=== PATIENT | male | born 1940 | race Caucasian/White ===

== ENCOUNTER 2025-04-05 01:48 | Inpatient (IN) | payer MEDICARE, BC ==
[~2025-04-05] VITALS: Ht 170.2 cm; Wt 49.0 kg
[2025-04-05] MEDS: IV NS 0.9% 500 ML BAG IV ONE ×2 (02:32→04:27)
[2025-04-05] MEDS ORDERED: PIPERACI/TAZO 3.375GM/D5W 50ML PB IV ONE (02:33)
[2025-04-05] MEDS ORDERED: ACETAMINOPHEN 325 MG/SUPP.RECT RC ONE (02:33)
[2025-04-05 02:34] LABS: ABG BASE EXCESS 0.3 mmol/L (-2.0-3.0); ABG OXYGEN SATURATION 96.3 % (94.0-98.0); ABG PCO2 29.9 mmHg (35.0-48.0); ABG PH 7.495 (7.350-7.450); ABG PO2 78.4 mmHg (83.0-108.0); COHb 0.3 % (0.5-1.5); MetHb 0.4 % (0.0-1.5); O2Hb 95.6 % (94.0-97.0); SITE, ABG LEFT RADIAL
[2025-04-05 02:42] LABS: APPEARANCE,URINE CLOUDY (CLEAR); BILIRUBIN,URINE NEGATIVE (NEGATIVE); BLOOD, URINE 3+ Ery/uL (NEGATIVE); COLOR,URINE YELLOW (YELLOW); KETONES,URINE NEGATIVE (NEGATIVE); LEUKOCYTE ESTERASE ,URINE 3+ (NEGATIVE); NITRITE, URINE NEGATIVE (NEGATIVE); PROTEIN,URINE 2+ mg/dl (NEGATIVE); UGLUCOSE NEGATIVE (NEGATIVE); UROBILINOGEN,URINE 0.2 EU/dL (0.2)
[2025-04-05] MEDS: PIPERACILLIN /TAZOBACTAM 3.375 G in IV D5W 50 ML IV ONE (02:42)
[2025-04-05] MEDS: ACETAMINOPHEN 650 MG/SUPP.RECT RC ONE (02:42)
[2025-04-05 02:43] LABS: BASOPHILS % (AUTO) 0.2 % (0.0-2.0); EOSINOPHILS % (AUTO) 0.1 % (0.0-6.0); HEMATOCRIT 42 % (39-51); HEMOGLOBIN 13.6 g/dL (13.5-17.5); LYMPHOCYTES # (AUTO) 4.7 K/uL (0.8-4.8); LYMPHOCYTES % (AUTO) 23.9 % (20.0-44.0); MEAN CORPUSCULAR HEMOGLOBIN 27 PG (26.0-33.0); MEAN CORPUSCULAR HGB CONC 32 g/dl (31.0-36.0); MEAN CORPUSCULAR VOLUME 83 fL (80-96); MONOCYTES # (AUTO) 1.3 K/uL (0.1-1.30); MONOCYTES % (AUTO) 6.5 % (2.0-12.0); NEUTROPHILS # (AUTO) 13.6 K/uL (1.8-8.9); NEUTROPHILS % (AUTO) 69.3 % (43.0-81.0); PLATELET COUNT (AUTO) 380 K/uL (150-450); RED BLOOD CELL COUNT(AUTO) 5.08 MIL/uL (4.5-6.0); RED CELL DISTRIBUTION WIDTH 16.2 % (11.5-15.0); WHITE BLOOD COUNT (AUTO) 19.6 K/uL (4.3-11.0)
[2025-04-05 02:52] LABS: CARBON DIOXIDE 28 mmol/L (21-32); CHLORIDE 103 mmol/L (98-107); CREATININE 0.7 mg/dL (0.6-1.3); GLUCOSE 135 mg/dL (74-106); SODIUM SERUM 137 mmol/L (136-145); UREA NITROGEN, BLOOD 22 mg/dL (7-18)
[2025-04-05 02:55] LABS: ADD URINE CULTURE YES; BACTERIA,URINE Many /HPF (None Seen); SQUAMOUS EPITHELIAL CELL,UR Rare /HPF (None Seen); WBC,URINE TOO NUMEROUS TO COUN /HPF (0-3)
[2025-04-05 02:58] LABS: ALANINE AMINOTRANSFERASE 24 U/L (12-78); ALBUMIN 2.5 g/dL (3.4-5.0); ALKALINE PHOSPHATASE 119 U/L (46-116); ASPARTATE AMINOTRANSFERASE 18 U/L (15-37); BILIRUBIN,DIRECT 0.1 mg/dL (0.0-0.2); BILIRUBIN,TOTAL 0.4 mg/dL (0.2-1.0); TOTAL PROTEIN, SERUM 7.2 g/dL (6.4-8.2)
[2025-04-05 03:01] LABS: LACTIC ACID 1.3 mmol/L (0.4-2.0)
[2025-04-05 03:30] LABS: INR 1.06 (0.91-1.10); PARTIAL THROMBOPLASTIN TIME 30.3 SEC (24.3-34.3); PROTHROMBIN TIME 11.2 SECS (9.2-11.1)
[2025-04-05] MEDS ORDERED: MAGNESIUM HYDROXIDE 30 ML UDC PO PRN (04:30)
[2025-04-05] MEDS ORDERED: ACETAMINOPHEN 325 MG TABLET PO PRN (04:30)
[2025-04-05] MEDS ORDERED: Z GUARD REMEDY 4 OZ OINT TP PRN (04:30)
[2025-04-05] MEDS ORDERED: ONDANSETRON HCL/PF 4 MG/2 ML VIAL IVP PRN (04:30)
[2025-04-05 05:00] VITALS: BP 97/58; TEMP 97.5; O2SAT 98
[2025-04-05] MEDS: IV D5/0.45 NACL 1,000 ML IV PRN (05:24)
[2025-04-05] MEDS: PANTOPRAZOLE 40 MG TABLET.DR PO SCH (07:30)
[2025-04-05 08:00] VITALS: BP 113/74; TEMP 97.3; O2SAT 100
[2025-04-05] MEDS: PIPERACILLIN /TAZOBACTAM 3.375 G in IV D5W 100 ML IV SCH (11:27)
[2025-04-05 12:00] VITALS: BP 94/65; TEMP 98.1; O2SAT 98
[2025-04-05 12:47] LABS: THYROID STIMULATING HORMONE 2.86 uIU/mL (0.358-3.74)
[2025-04-05] MEDS ORDERED: CLOP75TA15 PO (14:57)
[2025-04-05] MEDS ORDERED: ROSU10TA2 PO (14:57)
[2025-04-05 16:00] VITALS: BP 96/47; TEMP 97.9; O2SAT 96
[2025-04-05 20:00] VITALS: BP 104/57; TEMP 99; O2SAT 97
[2025-04-06 00:07] VITALS: BP 104/57; TEMP 99; O2SAT 97
[2025-04-06 07:08] LABS: BASOPHILS % (AUTO) 0.2 % (0.0-2.0); EOSINOPHILS # (AUTO) 0.1 K/uL (0.0-0.7); EOSINOPHILS % (AUTO) 1.3 % (0.0-6.0); HEMATOCRIT 34 % (39-51); LYMPHOCYTES # (AUTO) 3.7 K/uL (0.8-4.8); LYMPHOCYTES % (AUTO) 40.8 % (20.0-44.0); MEAN CORPUSCULAR HEMOGLOBIN 26 PG (26.0-33.0); MEAN CORPUSCULAR HGB CONC 32 g/dl (31.0-36.0); MEAN CORPUSCULAR VOLUME 81 fL (80-96); MONOCYTES # (AUTO) 0.7 K/uL (0.1-1.30); MONOCYTES % (AUTO) 7.5 % (2.0-12.0); NEUTROPHILS # (AUTO) 4.5 K/uL (1.8-8.9); NEUTROPHILS % (AUTO) 50.2 % (43.0-81.0); PLATELET COUNT (AUTO) 296 K/uL (150-450); RED BLOOD CELL COUNT(AUTO) 4.19 MIL/uL (4.5-6.0); RED CELL DISTRIBUTION WIDTH 16.5 % (11.5-15.0)
[2025-04-06 07:17] LABS: CALCIUM, SERUM 8.5 mg/dL (8.5-10.1); CREATININE 0.6 mg/dL (0.6-1.3); PHOSPHORUS 2.9 mg/dL (2.5-4.9); POTASSIUM 3.4 mmol/L (3.5-5.1)
[2025-04-06 08:00] VITALS: BP 108/73; TEMP 97.7; O2SAT 95
[2025-04-06 08:07] LABS: FOLIC ACID 7.5 ng/mL (>3.0)
[2025-04-06] MEDS: POTASSIUM CL. PREMIX PERIPHER. 50 ML IV SCH (09:56)
[2025-04-06] MEDS: THERAHONEY GEL 1.5 OZ TUBE TP SCH (14:57)
[2025-04-06 16:00] VITALS: BP 105/51; TEMP 97.7; O2SAT 98
[2025-04-06 20:00] VITALS: BP 124/76; TEMP 97.3; O2SAT 97
[2025-04-07] VITALS: BP 124/76; TEMP 97.3; O2SAT 97
[2025-04-07 04:00] VITALS: BP 111/64; TEMP 97.7; O2SAT 99
[2025-04-07 08:00] VITALS: BP 105/60; TEMP 98.1; O2SAT 98
[2025-04-07 08:28] LABS: CALCIUM, SERUM 7.8 mg/dL (8.5-10.1); CREATININE 0.7 mg/dL (0.6-1.3)
[2025-04-07] MEDS ORDERED: CEPH500C2 PO (10:26)
[2025-04-07] MEDS: CLOPIDOGREL BISULFATE 75 MG TABLET PO SCH (10:39)
[2025-04-08] MEDS ORDERED: ATORVASTATIN 40 MG TABLET PO SCH (09:00)
== END 2025-04-07 14:07 | disposition hospice, home (50) | DRG 177 ==
LOC: ER 02:00 → TELE1 03:36 → MEDSG1 16:25
PROVIDERS: ADMIT Nurse Practitioner Acute Care; ATTEND Nurse Practitioner Acute Care
DX: J69.0 Pneumonitis due to inhalation of food and vomit (principal); E43 Unspecified severe protein-calorie malnutrition; L89.623 Pressure ulcer of left heel, stage 3; L89.893 Pressure ulcer of other site, stage 3; J96.01 Acute respiratory failure with hypoxia; G93.41 Metabolic encephalopathy; D68.59 Other primary thrombophilia; N39.0 Urinary tract infection, site not specified; R64 Cachexia; N17.9 Acute kidney failure, unspecified; Z68.1 Body mass index [BMI] 19.9 or less, adult; E78.5 Hyperlipidemia, unspecified; E86.0 Dehydration; R62.7 Adult failure to thrive; Z51.5 Encounter for palliative care; Z66 Do not resuscitate; R32 Unspecified urinary incontinence; L22 Diaper dermatitis; B96.20 Unspecified Escherichia coli [E. coli] as the cause of diseases classified elsewhere; F03.90 Unspecified dementia, unspecified severity, without behavioral disturbance, psychotic disturbance, mood disturbance, and anxiety; Z20.822 Contact with and (suspected) exposure to COVID-19; D72.829 Elevated white blood cell count, unspecified; Z74.09 Other reduced mobility; M62.50 Muscle wasting and atrophy, not elsewhere classified, unspecified site; M24.562 Contracture, left knee; M24.561 Contracture, right knee; M24.572 Contracture, left ankle; M24.571 Contracture, right ankle; L89.150 Pressure ulcer of sacral region, unstageable
CPT/HCPCS: 36415; 36600; 71045-TC; 80048-TC; 80076-TC; 81001; 82607-TC; 82803-TC; 83605-TC; 83735-TC; 83921; 84100-TC; 84425; 84443-TC; 84484-TC; 85025-TC; 85730-TC; 87040-TC; 87086-TC; 87186-TC; 92526; 92611-TC; A4223; A6213; G0378; J2543; J3480; J3490; J7060